=== PATIENT | female | born 1940 | race Caucasian/White ===

== ENCOUNTER → 2017-08-05 09:37 | Outpatient (CLI) | payer MEDICARE, SELFPAY ==
--- NOTE | 2017-08-05 09:39 | BI_ITS ---
MAMMOGRAPHY - BILATERAL SCREENING REASON FOR EXAM: Female, 76 years old. Routine annual screening examination. PERTINENT HISTORY: Aunt with breast cancer. History of prior bilateral stereotactic breast biopsies. TECHNIQUE: Digital bilateral breast panchito (3D mammographic acquisition) in the CC and MLO projections. 2-D mediolateral oblique (MLO) and craniocaudad (CC) views of both breasts were obtained. CAD: Full Field Digital Mammography with Computer Added Detection was performed. COMPARISON: Comparison is made with prior study dated August 04, 2016 and July 17, 2015. FINDINGS: Breast Composition: There are scattered areas of fibroglandular density. There are no dominant masses or suspicious calcifications. Stable appearance of the bilateral tissue markers. No other significant abnormalities are identified. There has been no significant change since the prior study. BI/SCREENING MAMM (CAD), BILAT IMPRESSION: Stable bilateral screening mammogram. Yearly follow-up mammogram recommended. (A) ASSESSMENT CATEGORY: BIRADS Category 2: Benign. A letter regarding these results will be sent to the patient by the facility within 30 days. Approximately 10% of breast cancers are not detected by mammography. A normal mammogram should not delay biopsy of a clinically suspicious abnormality. [id number] Electronically Signed: Jean-Claude Hoffmann MD at 11:26 EDT Tel [phone], Service support ,
== END ==
PROVIDERS: Family Provider Internal Medicine; PCP Internal Medicine; Visit Provider Internal Medicine
DX: Z12.31 Encounter for screening mammogram for malignant neoplasm of breast (principal)
CPT/HCPCS: 77063; 77067

== ENCOUNTER → 2017-12-16 12:41 | Outpatient (CLI) | payer SELFPAY ==
[2017-12-16 13:14] VITALS: BP 154/67; PULSE 46; RESP 14; O2SAT 97; BMI 28.0
--- NOTE | 2017-12-16 13:42 | CT_ITS ---
STUDY: CARDIAC CALCIUM SCORING - CT CHEST REASON FOR EXAM: Female, 77 years old. Family history of heart disease. Hypertension and hypercholesterolemia. RADIATION DOSAGE (If Supplied By Facility): CTDIvol = ( 12.19 ) mGy, DLP = ( 219.42 ) mGycm TECHNIQUE: Axial non-enhanced images were acquired through the heart for the sole purpose of measuring coronary artery calcium. Individualized dose optimization techniques were used for this CT. COMPARISON: Chest, March 30, 2017. FINDINGS: This portion of the report is being generated solely for the evaluation of noncoronary artery structures which have been assessed on plain another report. The visualized lungs are clear. There is no mass or infiltrate Normal heart and pericardium. Normal visualized mediastinum and marine. Normal pulmonary arteries. There is minimal atherosclerotic changes of the thoracic aorta without aneurysm. Minimal degenerative changes of the thoracic spine. Normal visualized upper abdomen. CT/Limited Chest CT w/CCTA IMPRESSION: Atherosclerotic changes of the thoracic aorta without other abnormality. Electronically Signed: Darwin Pacheco DO at 20:18 EDT Tel [phone], Service support ,
--- NOTE | 2017-12-16 18:54 | CA.SCORE ---
Calcium Scoring Date of Study:: 12/16/17 Coronary Calcium Scoring: High-resolution computed tomographic imaging of the chest was performed on 12/16/2017 with particular attention paid to the coronary arteries. Images were analyzed for the presence and extent of coronary artery calcification. The coronary calcification quantification software was utilized. The patient tolerated the procedure well no complications were noted. The results of the coronary calcification analysis are noted as follows. Left main coronary calcium score of 0. Left anterior descending artery coronary calcium score of 0 Left circumflex artery coronary calcification score of 0 Right coronary artery coronary calcium score 0. Total Arvind score of 0. The above is suggestive of very low cardiovascular disease risk with no significant coronary calcification noted.
== END ==
PROVIDERS: Family Provider Internal Medicine; PCP Internal Medicine; Referring Provider Internal Medicine; Visit Provider Internal Medicine
DX: E88.81 Metabolic syndrome and other insulin resistance (principal); E78.00 Pure hypercholesterolemia, unspecified; R79.89 Other specified abnormal findings of blood chemistry; Z82.49 Family history of ischemic heart disease and other diseases of the circulatory system
CPT/HCPCS: 75571; 76380

== ENCOUNTER → 2018-08-09 07:54 | Outpatient (CLI) | payer MEDICARE, SELFPAY ==
[2017-12-16 13:14] VITALS: BMI 28.0
--- NOTE | 2018-08-09 07:58 | BI_ITS ---
MAMMOGRAPHY - BILATERAL SCREENING REASON FOR EXAM: Female, 77 years old. Routine annual screening examination. PERTINENT HISTORY: Aunt with breast cancer. Remote bilateral stereotactic breast biopsies. TECHNIQUE: Digital bilateral breast sherri (3D mammographic acquisition) in the CC and MLO projections. 2-D mediolateral oblique (MLO) and craniocaudad (CC) views of both breasts were obtained. CAD: Full Field Digital Mammography with Computer Added Detection was performed. COMPARISON: Comparison is made with prior study dated August 05, 2017 and August 04, 2016. FINDINGS: Breast Composition: There are scattered areas of fibroglandular density. There are no dominant masses or suspicious calcifications. Stable appearance of the bilateral tissue markers from prior stereotactic biopsies. No other significant abnormalities are identified. There has been no significant change since the prior study. BI/SCREEN MAMM (CAD) W/SHERRI BILAT IMPRESSION: Stable bilateral screening mammogram. Yearly follow-up mammogram recommended. (A) ASSESSMENT CATEGORY: BIRADS Category 2: Benign. A letter regarding these results will be sent to the patient by the facility within 30 days. Approximately 10% of breast cancers are not detected by mammography. A normal mammogram should not delay biopsy of a clinically suspicious abnormality. [id number] Electronically Signed: Jean-Claude Hoffmann, at 13:34 EDT , Service support ,
== END ==
PROVIDERS: Family Provider Internal Medicine; PCP Internal Medicine; Referring Provider Surgery; Visit Provider Surgery
DX: Z12.31 Encounter for screening mammogram for malignant neoplasm of breast (principal)
CPT/HCPCS: 77063; 77067

== ENCOUNTER 2018-10-14 05:20 | Day surgery (SDC) | payer MEDICARE, SELFPAY ==
--- NOTE | 2018-10-11 05:24 | HP_ITS ---
Intake Vital Signs 10/11/18 Body Mass Index (BMI) 28.0 10/11/18 Height 4 ft 11 in 10/11/18 Weight: 145 lb 10/11/18 Body Mass Index (BMI) 29.2 10/11/18 Blood Pressure 157/79 H 10/11/18 Blood Pressure Location Rt brachial 10/11/18 Respiratory Rate 16 10/11/18 Pulse Rate 76 10/11/18 Temperature 97.5 F L 10/11/18 Pulse Ox 98 10/11/18 Oxygen Delivery Method room air Intake Visit Reasons: constipation/discuss colonoscopy Chief Complaint: CA SCORING Allergies Penicillins Allergy (Verified 10/11/18 13:52) Unknown Sulfa (Sulfonamide Antibiotics) Allergy (Verified 10/11/18 13:52) Unknown Medications Alpha Lipoic Acid 03/06/14 [History Confirmed 10/11/18] Ascorbic Acid [Vitamin C] 1,000 mg PO DAILY@0800 03/06/14 [History Confirmed 10/11/18] Aspirin E.C. [Ecotrin] 81 mg PO DAILY@0800 03/06/14 [History Confirmed 10/11/18] Biotin 5 mg PO DAILY 03/06/14 [History Confirmed 10/11/18] Calcium Carb,Gluc/Mag Ox,Gluc [Calcium Magnesium Caplet] 1 ea PO DAILY 03/06/14 [History Confirmed 10/11/18] Cholecalciferol (VIT D3) [Vitamin D3] 1,000 unit PO DAILY 03/06/14 [History Confirmed 10/11/18] Cranberry 25,000 mg PO DAILY 03/06/14 [History Confirmed 10/11/18] Garlic [Odor Free Garlic] 50 mg PO DAILY 03/06/14 [History Confirmed 10/11/18] Ginkgo Biloba 120 mg PO DAILY 03/06/14 [History Confirmed 10/11/18] Lecithin 1,200 mg PO DAILY 03/06/14 [History Confirmed 10/11/18] Lisinopril [Zestril] 5 mg PO DAILY 03/06/14 [History Confirmed 10/11/18] Lutein Extract/Zeaxanthin Ext [Lutein 15 mg Softgel] 1 ea PO DAILY 03/06/14 [History Confirmed 10/11/18] Multivitamins,Therapeutic [Multivitamin] 1 tab PO DAILY 03/06/14 [History Confirmed 10/11/18] Polyethylene Glycol 3350 [Miralax] 17 gm PO DAILY 03/06/14 [History Confirmed 10/11/18] Raspberry Ketone [Raspberry Ketones] 100 mg PO DAILY 03/06/14 [History Confirmed 10/11/18] Simvastatin [Zocor] 10 mg PO QHS 03/06/14 [History Confirmed 10/11/18] Vitamin E 400 units PO DAILY 03/06/14 [History Confirmed 10/11/18] l-Carnitine 500 mg PO DAILY 03/06/14 [History Confirmed 10/11/18] Hydrocodone Bitart/Apap 5-325 [[place] 5MG-325MG] 1 tab PO Q4H PRN PRN #15 tab 03/22/14 [Rx Confirmed 10/11/18] Ondansetron [Zofran Odt] 4 mg PO Q8H PRN PRN #10 tab 03/30/17 [Rx Confirmed 10/11/18] proMETHazine tablet [Phenergan] 25 mg PO Q6H PRN PRN #10 tab 03/30/17 [Rx Confirmed 10/11/18] levothyroxine 50 mcg capsule 50 mcg PO QDAY 08/06/17 [History Confirmed 10/11/18] omega-3 fatty acids 1,000 mg capsule 1,000 mg PO QDAY 08/06/17 [History Confirmed 10/11/18] PFSH Medical History Diverticulosis (Acute) Hypothyroidism (Acute) HTN (hypertension) (Chronic) Surgical History S/P appendectomy (Acute) S/P breast biopsy (Acute) S/P colonoscopy (Acute) S/P hysterectomy (Acute) S/P laparoscopic cholecystectomy (Acute) S/P thyroid biopsy (Acute) S/P tonsillectomy (Acute) Family History Mother No problems noted. Social History (Updated 10/11/18 @ 17:24 by Ariel Zamorano MD) Smoking Status: Former smoker HPI HPI HPI: YFN ARTIS, is a 77 F who presents to the office today for HPI HPI Surgical H&P: Yes HPI: YFN ARTIS, is a 77 F who presents to the office today for surgical consultation regarding a 2 and out month history of change of bowel habits. She has had problems with constipation alternating with looser stools. She has had tissue on the toilet paper now consistently for 1 to 2 weeks. This is painless. Some of her constipation issue has been assisted by utilizing pine nuts. She has just recently initiated use of MiraLAX. Her history is pertinent in that March 22, 2014 I performed a lap scopic lysis of adhesions with a laparoscopic sigmoid colectomy because of a sigmoid diverticular stricture. She had had a preoperative failed colonoscopy by Dr. Jorge Luis Baldwin. A barium enema demonstrated a diverticular stricture. Final pathology was consistent with diverticular disease and one lymph node unremarkable. The margins were not remarkable. The patient otherwise recovered and seemed to have a good progress over the past 4 years. This current problem is new over the past 2 possibly 3 months. She takes a wide variety of vitamins and supplements. She is also recently started on CBD supplement. That apparently has assisted with back pain. She does take an aspirin and fish oil but also takes a product called K2 to inhibit the anticoagulation effect. She denies history of DVT. She denies unexpected weight loss. She notes abdominal discomfort related to cramping and constipation. ROS General General: No weight change, appetite, fatigue, colon cancer, breast cancer or weakness HEENT HEENT: Yes eye surgery; no difficulty swallowing, eye injury, swollen glands or hoarseness Endo Endocrine: Yes thyroid disease; no diabetes mellitus, thyroid cancer, Hair loss, heat intolerance or cold intolerance Skin Skin: No rash or changing moles Breast Breast: No left breast lump, right breast lump, nipple discharge, breast pain, abnormal mammogram, abnormal US or breast enlargement Musc Musculoskeletal: No back problems, arthritis, rheumatoid arthritis, gout or joint pain Cardio Cardiovascular: Yes murmur and high blood pressure; no pacemaker, heart disease, atrial fibrillation, heart attack, heart stent, palpitations, shortness of breat with exertion or chest pain Psych Psychiatric: No depression, anxiety or hearing voices Resp Respiratory: No shortness of breath, No sleep apnea, No cough, No COPD, No asthma, No emphysema, No wheezing Gastro Gastrointestinal: No abdominal pain, No nausea or vomiting, Yes diarrhea, Yes constipation, Yes blood in stool, No acid reflux, Yes hemorrhoids, No ulcers, No gallbladder problem, No black,tarry stools Tan Hematologic: No blood thinners, No blood disorders, No bleeding, No anemia, No blood clots Neuro Neurologic: No system reviewed and no additional complaints, except as docu, No as per HPI, No abnormal walking, No abnormal hearing, No abnormal movements, No abnormal speech, No behavioral changes, No burning sensations, No confusion, No seizure-like activity, No unsteadiness, No dizziness, No localized weakness, No frequent falls, No headache(s), No lack of coordination, No loss of vision, No memory loss, No numbness, No other visual disturbances, No radiating pain, No restless legs, No sensory deficit, No fainting, No tingling, No tremor(s), No weakness, No other Exam Const General: cooperative, healthy appearing, comfortable, no acute distress Nutritional Appearance: average body habitus Orientation: alert, awake, oriented x3 HENMT Head: normal to inspection Chest Breast Palpation: No nipple discharge Resp Effort & Inspection: normal respiratory effort Auscultation: clear to auscultation bilaterally Cardio Rate: regular rate Rhythm: regular rhythm Heart Sounds: murmur GI Palpation: soft, no hepatosplenomegaly Auscultation: normal bowel sounds Neuro Cognition: normal cognition Extrem General: no calf tenderness bilaterally Psych Affect: normal affect Assessment & Plan Problems 1. Change in bowel habit R19.4 Plan Change of bowel habit with constipation and some looser stools. She clearly has bright red blood per rectum on the photographed tissue paper. She has no pain with this. She has previously had diverticulitis and diverticular stricture. I am recommending to her a colonoscopy with possible biopsy or polypectomy as indicated. She is aware of the technique, benefit, risks, alternatives. Very careful inspection of the anal rectal area will be pursued for potential source of bright red bleeding. She has had an opportunity to ask and have questions answered. We will schedule and expedite her care. I appreciate the ongoing opportunity of assisting with her surgical care. CC: Dr. Priya Zamorano M.D., F.A.C.S. Coding Level of Care Code Off vis,est,level 3 Diagnoses Change in bowel habit R19.4 10/11/18 [id number] <Electronically signed by Ariel fuentes MD> Date _ Ariel Zamorano MD I have re-examined the patient. There are no clinical changes since date of exam.
[2018-10-11 13:52] VITALS: BMI 28.0
[2018-10-14] VITALS (7 sets, daily range): BP systolic 98–139; BP diastolic 60–68; PULSE 59–73; RESP 16; TEMP 36.2–36.4; O2SAT 96–99; BMI 27.1
--- NOTE | 2018-10-14 | COLBX_PTH ---
PATIENT: YFN ARTIS LOC: EN U#:[id number] AGE/SX: 77/F ROOM: RE10/14/[address]: Dr. Ariel Zamorano MD : 1940 BED: DIS: 10/14/2018 SPEC #: [id number] RECD: 10/14/18 12:50 STATUS: APARNA RENikko #: [id number] ESTHER: 10/14/18 00:[address]: Ariel Zamorano DEPT: SURGICAL PATHOLOGY RECD BY: Cas Mendez ENTERED: 10/14/18 12:51 SP TYPE: COLON BX OTHR DR: Dr. Priya Ogden MD Tissues: A - Sigmoid colon biopsy B - Rectum, NOS Procedures: Surgery Specimen Level IV HEADER OPERATION: Colonoscopy (MAC) PRE-OP DIAGNOSIS: Change in bowel habit TISSUE SUBMITTED: A - Biopsy sigmoid anastomosis, B - Rectal biopsy MICROSCOPIC DIAGNOSIS A. Sigmoid anastomosis, biopsy: Moderate acute colitis. See microscopic description and comment. B. Rectal biopsy: Moderate acute colitis. See microscopic description and comment. SJ:jacy 10/17/18 COMMENT The finding of acute colitis can be due to self limited colitis, infectious colitis or rarely due to inflammatory bowel disease. Correlation with clinical, endoscopic findings and appropriate follow up are necessary. MICROSCOPIC DESCRIPTION Slides are reviewed. A & B. Both specimens show similar morphologic features. The specimen shows fragments of colonic mucosa with moderate acute and chronic inflammatory cell infiltrates in the lamina propria, cryptitis and crypt abscesses. Significant glandular distortion or granulomas are not seen. GROSS DESCRIPTION A - Received in fixative is one container labeled with the patient's name and designated sigmoid anastomosis. The specimen consists of multiple irregular fragments of light ervin soft tissue that in aggregate measure 0.5 x 0.2 x 0.1 cm. The specimen is totally submitted in one cassette. B - Received in fixative is one container labeled with the patient's name and designated rectal biopsy. The specimen consists of two irregular fragments of light ervin soft tissue that in aggregate measure 0.6 x 0.3 x 0.1 cm. The specimen is totally submitted in one cassette. / AM:jacy 10/14/18 TC:2 CPT: 38941 x2
--- NOTE | 2018-10-14 07:07 | OP.ENDO_ITS ---
10/14/2018 Priya Ogden Re : Colonoscopy procedure for Rachel Lorenzo Melvi This procedure was performed on Sunday, October 14, 2018. My impressions and recommendations are as follows: Impressions : - Non-thrombosed internal hemorrhoids and internal hemorrhoids that prolapse with straining, but spontaneously regress to the resting position (Grade II) found on digital rectal exam. - Erythematous mucosa in the mid rectum. Biopsied. - Patent end-to-end colo-colonic anastomosis, characterized by erythema. Biopsied. Recommendations : - Discharge patient to home. - Resume previous diet. - Continue present medications. - Repeat colonoscopy in 10 years for screening purposes. - Telephone my office for pathology results in 1 week. Will await pathology reports for further recommendations My findings are described in the full procedure note, which is enclosed. If I can be of further assistance, please feel free to contact me at Doctor phone number(s): Work: . Sincerely, Ariel Zamorano MD 10/14/2018 7:06:46 AM This report has been signed electronically.
== END 2018-10-14 07:49 | disposition home or self-care (01) ==
LOC: EN 05:20 → AC 05:22
PROVIDERS: Family Provider Internal Medicine; PCP Internal Medicine; Referring Provider Internal Medicine; Visit Provider Surgery
PROC: 0DJD8ZZ Inspection of Lower Intestinal Tract, Via Natural or Artificial Opening Endoscopic (ICD-10-PCS; CPT 45378; principal; 2018-10-14 06:25)
DX: K57.30 Diverticulosis of large intestine without perforation or abscess without bleeding (principal); K64.1 Second degree hemorrhoids; K59.00 Constipation, unspecified; K62.5 Hemorrhage of anus and rectum; Z98.0 Intestinal bypass and anastomosis status; I10 Essential (primary) hypertension; E03.9 Hypothyroidism, unspecified; Z87.891 Personal history of nicotine dependence; Z79.82 Long term (current) use of aspirin; Z79.899 Other long term (current) drug therapy; Z88.0 Allergy status to penicillin; Z88.2 Allergy status to sulfonamides
CPT/HCPCS: 45380; 88305; J7120

== ENCOUNTER → 2018-11-08 07:57 | Outpatient (CLI) | payer MEDICARE, SELFPAY ==
[2018-10-14 05:42] VITALS: BMI 27.1
--- NOTE | 2018-11-08 08:08 | BD_ITS ---
STUDY: DUAL ENERGY X-RAY ABSORPTIOMETRY / DXA REASON FOR EXAM: Female, 78 years old. The patient is postmenopausal. No loss of height. TECHNIQUE: Bone Mineral Density (BMD) measurements of lumbar spine and bilateral hips were obtained. COMPARISON: Comparison is made with prior examination dated August 05, 2016. FINDINGS: Lumbar Spine (L1-L4): g/cm2 (1.159) / T-score (-0.1) / Z-score (1.7) Findings are suggestive of normal bone density with a low fracture risk. Left Femur Total: g/cm2 (0.922) / T-score (-0.7) / Z-score (1.2) Left Femoral Neck: g/cm2 (0.832) / T-score (-1.5) / Z-score (0.5) Right Femur Total: g/cm2 (0.944) / T-score (-0.5) / Z-score (1.3) Right Femoral Neck: g/cm2 (0.835) / T-score (-1.5) / Z-score (0.5) The T-Scores on the most recent prior examination were: Lumbar Spine (L1-L4): There has been improvement of bone density since the previous examination. Left Femur Total: which represents a worsening of 0.9%. Right Femur Total: which represents an improvement of 1.4%. BD/Dexa Bone Density Study IMPRESSION: The patient is considered osteopenic as outlined below according to World Ellis Organization (WHO) criteria with a low fracture risk. There has been improvement of bone density since the previous examination. Reference Information: The T-score is the number of standard deviations above or below the standard which is normal for young adults at their peak bone mineral density. The World Health Organization (WHO) interprets the T-scores as follows: Above -1 Normal bone density Between -1 and -2.5 Osteopenia Equal to / or below -2.5 Osteoporosis As a practical clinical guideline, osteopenia may be graded as follows: Mild -1 through -1.5 Moderate -1.6 through -2.0 Severe -2.1 through -2.4 The Z-score is the number of standard deviations above or below age-matched controls. A Z-score of less than -1.5 would be considered abnormal. References: 1. NIH Osteoporosis and Related Bone Diseases http://www.osteo.org 2. International Society for Clinical Densitometry http://www.iscd.org 3. National Osteoporosis Foundation http://www.nof.org Electronically Signed: Jean-Claude Hoffmann, at 14:57 EDT , Service support ,
== END ==
PROVIDERS: Family Provider Internal Medicine; PCP Internal Medicine; Referring Provider Internal Medicine; Visit Provider Internal Medicine
DX: Z78.0 Asymptomatic menopausal state (principal); M85.80 Other specified disorders of bone density and structure, unspecified site
CPT/HCPCS: 77080

== ENCOUNTER → 2018-11-10 14:01 | Outpatient (CLI) | payer MEDICARE, SELFPAY ==
[2018-10-14 05:42] VITALS: BMI 27.1
--- NOTE | 2018-11-10 14:04 | VDLE_ITS ---
Reason For Study: Pain Procedure LEFT Exam performed in department. GSV is normal. A preliminary report was called and/or faxed CFV is compressible, spontaneous, phasic, to Melvi. competent, and demonstrates normal augmentation. FV is compressible, spontaneous, phasic, competent and demonstrates normal augmentation. POP V is compressible, spontaneous, phasic, competent and demonstrates normal augmentation. T/P Trunk is compressible. PTV is compressible. LT PerV is compressible. Interpretation Summary Deep veins of the left lower extremity are patent and compressible segmentally. There is no evidence of left lower extremity deep vein thrombosis. Valvular competence appears intact within the proximal deep venous system on the left . The left great saphenous vein appears patent and compressible segmentally. Ordering Physician: Priya Ogden Referring Physician: Priya Ogden Performed By: Ayde Velez RVT
== END ==
PROVIDERS: Family Provider Internal Medicine; PCP Internal Medicine; Referring Provider Internal Medicine; Visit Provider Internal Medicine
DX: M79.662 Pain in left lower leg (principal)
CPT/HCPCS: 93971

== ENCOUNTER → 2018-11-23 10:59 | Outpatient (CLI) | payer MEDICARE, SELFPAY ==
[2018-10-14 05:42] VITALS: BMI 27.1
== END ==
PROVIDERS: Family Provider Internal Medicine; PCP Internal Medicine; Referring Provider Surgery; Visit Provider Surgery
DX: R19.7 Diarrhea, unspecified (principal)
CPT/HCPCS: 83630; 87493

== ENCOUNTER → 2019-08-14 08:30 | Outpatient (CLI) | payer MEDICARE, SELFPAY ==
[2018-10-14 05:42] VITALS: BMI 27.1
--- NOTE | 2019-08-14 08:32 | BI_ITS ---
MAMMOGRAPHY - BILATERAL SCREENING REASON FOR EXAM: Female, 78 years old. Routine annual screening examination. PERTINENT HISTORY: Prior bilateral stereotactic breast biopsies. Aunt with breast cancer. TECHNIQUE: Digital bilateral breast sherri (3D mammographic acquisition) in the CC and MLO projections. 2-D mediolateral oblique (MLO) and craniocaudad (CC) views of both breasts were obtained. CAD: Full Field Digital Mammography with Computer Added Detection was performed. COMPARISON: Comparison is made with prior examination dated August 09, 2018 and August 05, 2017. FINDINGS: Breast Composition: There are scattered areas of fibroglandular density. There are no dominant masses or suspicious calcifications. Tissue clip marker is once again seen in the central portion of the right breast. Stable appearance of the benign-appearing bilateral axillary lymph nodes. No other significant abnormalities are identified. There has been no significant change since the prior study. BI/SCREEN MAMM (CAD) W/SHERRI BILAT IMPRESSION: Stable bilateral screening mammogram. Yearly follow-up mammogram recommended. (A) ASSESSMENT CATEGORY: BIRADS Category 2: Benign. A letter regarding these results will be sent to the patient by the facility within 30 days. Approximately 10% of breast cancers are not detected by mammography. A normal mammogram should not delay biopsy of a clinically suspicious abnormality. [id number] Electronically Signed: Jean-Claude Hoffmann, at 9:57 EDT , Service support ,
== END ==
PROVIDERS: PCP Internal Medicine; Referring Provider Internal Medicine; Visit Provider Surgery
DX: Z12.31 Encounter for screening mammogram for malignant neoplasm of breast (principal); Z80.3 Family history of malignant neoplasm of breast
CPT/HCPCS: 77063; 77067

== ENCOUNTER → 2020-08-14 12:40 | Outpatient (CLI) | payer MEDICARE, SELFPAY ==
[2019-10-10 14:21] VITALS: BMI 27.1
--- NOTE | 2020-08-14 12:43 | BI_ITS ---
MAMMOGRAPHY - BILATERAL SCREENING REASON FOR EXAM: Female, 79 years old. Routine annual screening examination. PERTINENT HISTORY: Aunts with breast cancer. Prior bilateral stereotactic breast biopsy. TECHNIQUE: Digital bilateral breast sherri (3D mammographic acquisition) in the CC and MLO projections. 2-D mediolateral oblique (MLO) and craniocaudad (CC) views of both breasts were obtained. CAD: Full Field Digital Mammography with Computer Added Detection was performed. COMPARISON: Comparison is made with prior study dated 08/14/2019 and 08/09/2018. FINDINGS: Breast Composition: There are scattered areas of fibroglandular density. There are no dominant masses or suspicious calcifications. A tissue clip marker is once again seen in the central portion of the right breast. A tissue clip marker is also seen in the mid medial portion of the left breast. No other significant abnormalities are identified. There has been no significant change since the prior study. BI/SCRN MAMM (CAD)W/SHERRI BILAT IMPRESSION: Stable bilateral screening mammogram. Yearly follow-up mammogram recommended. (A) ASSESSMENT CATEGORY: BIRADS Category 2: Benign. A letter regarding these results will be sent to the patient by the facility within 30 days. Approximately 10% of breast cancers are not detected by mammography. A normal mammogram should not delay biopsy of a clinically suspicious abnormality. [id number] Electronically Signed: Jean-Claude Hoffmann MD at 14:37 EDT , Service support ,
== END ==
PROVIDERS: PCP Internal Medicine; Referring Provider Surgery; Visit Provider Surgery
DX: Z12.31 Encounter for screening mammogram for malignant neoplasm of breast (principal); Z80.3 Family history of malignant neoplasm of breast
CPT/HCPCS: 77063; 77067

== ENCOUNTER → 2020-11-14 14:15 | Outpatient (CLI) | payer MEDICARE, SELFPAY ==
[2019-10-10 14:21] VITALS: BMI 27.1
--- NOTE | 2020-11-14 14:30 | BD_ITS ---
STUDY: DUAL ENERGY X-RAY ABSORPTIOMETRY / DXA REASON FOR EXAM: Female, 80 years old. Z780. Patient is postmenopausal. TECHNIQUE: Bone Mineral Density (BMD) measurements of lumbar spine and bilateral hips were obtained. COMPARISON: Comparison is made with prior study 11/08/2018. FINDINGS: Lumbar Spine (L1-L4): g/cm2 (1.092) / T-score (0.4) / Z-score (3.0) Findings are suggestive of normal bone density with a low fracture risk. Left Femur Total: g/cm2 (0.860) / T-score (-0.7) / Z-score (1.3) Left Femoral Neck: g/cm2 (0.625) / T-score (-2.0) / Z-score (0.2) Right Femur Total: g/cm2 (0.846) / T-score (-0.8) / Z-score (1.2) Right Femoral Neck: g/cm2 (0.664) / T-score (-1.7) / Z-score (0.6) The T-Scores on the most recent prior examination were: Lumbar Spine (L1-L4): There has been worsening of bone density since the previous examination. Left Femur Total: which represents an improvement of 0.3%. Right Femur Total: which represents a worsening of 3.8%. BD/Dexa Bone Density Study IMPRESSION: The patient is considered osteopenic as outlined below according to World Ellis Organization (WHO) criteria with a low fracture risk. There has been worsening of bone density since the previous examination. Reference Information: The T-score is the number of standard deviations above or below the standard which is normal for young adults at their peak bone mineral density. The World Health Organization (WHO) interprets the T-scores as follows: Above -1 Normal bone density Between -1 and -2.5 Osteopenia Equal to / or below -2.5 Osteoporosis As a practical clinical guideline, osteopenia may be graded as follows: Mild -1 through -1.5 Moderate -1.6 through -2.0 Severe -2.1 through -2.4 The Z-score is the number of standard deviations above or below age-matched controls. A Z-score of less than -1.5 would be considered abnormal. References: 1. NIH Osteoporosis and Related Bone Diseases www osteo.org 2. International Society for Clinical Densitometry www iscd.org 3. National Osteoporosis Foundation www nof.org Electronically Signed: Jean-Claude Hoffmann MD at 9:36 EDT , Service support ,
== END ==
PROVIDERS: PCP Internal Medicine; Referring Provider Internal Medicine; Visit Provider Internal Medicine
DX: Z78.0 Asymptomatic menopausal state (principal)
CPT/HCPCS: 77080

== ENCOUNTER → 2020-11-27 12:31 | Outpatient (CLI) | payer SELFPAY ==
--- NOTE | 2020-11-27 12:37 | CT_ITS ---
STUDY: CARDIAC CALCIUM SCORING - CT CHEST REASON FOR EXAM: Female, 80 years old. CTA CORONARY ABNL CARDIOVASCULAR RESULTS TECHNIQUE: Axial non-enhanced images were acquired through the heart for the sole purpose of measuring coronary artery calcium. Individualized dose optimization techniques were used for this CT. COMPARISON: 12/16/2017 FINDINGS: Visualized surrounding anatomy: Aortic valvular calcifications. Left Main Coronary Artery: 0 Left Anterior Descending Artery: 0 Left Circumflex Artery: 0 Right Coronary Artery: 0 Total Calcium Score: 0 CT/Limited Chest CT w/CCTA IMPRESSION: A Calcium Score of 0 places the patient in the approximate 0 percentile, based on the CARR data calculator. Please go to: [email or web address]-[email or web address]/Calcium/input.aspx , for a description of the calculator. Electronically Signed: Damian Milan MD at 8:45 EDT , Service support ,
[2020-11-27 12:45] VITALS: BP 163/90; PULSE 59; RESP 18; TEMP 36.6; O2SAT 100; BMI 26.2
--- NOTE | 2020-11-27 17:59 | CA.SCORE ---
Calcium Scoring Date of Study:: 11/27/20 Coronary Calcium Scoring: High-resolution Computed Tomographic imaging of the chest was performed on 11/27/2020 with particular attention paid to the coronary arteries. Images from the examination were analyzed for the presence and extent of coronary artery calcification , using coronary calcium quantification software. The patient tolerated the procedure well and there were no complications. The results of the coronary calcification analysis are provided below. Findings Coronary Artery Left Main (LM): 0 Left Anterior Descending (LAD): 0 Left Circumflex (LCX): 0 Right Coronary Artery (RCA): 0 Total Agatston Score: 0 Percentile Ranking: According to prepublished reference tables 0% of people of the same gender and/or similar age had the same and/or lower scores Calcium Scoring Interpretation: 0 No identifiable atherosclerotic plaque. Very low cardiovascular disease risk. <5% chance of presence coronary artery disease A Negative Examination 1-10 Minimal Plaque burden. Significant coronary artery disease very unlikely. 11-100 Mild plaque burden. Likely mild or minimal coronary atherosclerosis. 101-400 Moderate plaque burden Moderate non-obstructive coronary artery disease highly likely. Over 400 Extensive plaque burden. High likelihood of at least one significant coronary stenosis (>50% diameter) Calcium Score: 0 Negative Examination Conclusion: Continue cardiovascular evaluation and care as deemed appropriate. This note was generated using a voice recognition system and there may be incorrect words, spelling or punctuation that were not noted when reviewing the office note prior to saving.
== END ==
PROVIDERS: PCP Internal Medicine; Referring Provider Internal Medicine; Visit Provider Internal Medicine
DX: E78.49 Other hyperlipidemia (principal)
CPT/HCPCS: 75571; 76380

== ENCOUNTER → 2021-08-15 | Outpatient (CLI) | payer MEDICARE, SELFPAY ==
--- NOTE | 2021-08-15 08:50 | BI_ITS ---
MAMMOGRAPHY - BILATERAL SCREENING REASON FOR EXAM: Female, 80 years old. Routine annual screening examination. PERTINENT HISTORY: Aunt with breast cancer. Prior left and right stereotactic breast biopsies. TECHNIQUE: Digital bilateral breast sehrri (3D mammographic acquisition) in the CC and MLO projections. 2-D mediolateral oblique (MLO) and craniocaudad (CC) views of both breasts were obtained. CAD: Full Field Digital Mammography with Computer Added Detection was performed. COMPARISON: Comparison is made with prior study dated 08/14/2020 and 08/14/2019. FINDINGS: Breast Composition: There are scattered areas of fibroglandular density. There are no dominant masses or suspicious calcifications. 2 tissue clip marker are once again seen in the central portion of the right breast as well as in the mid medial portion of the left breast. Stable appearance of the right axillary lymph nodes. No other significant abnormalities are identified. There has been no significant change since the prior study. BI/SCRN MAMM (CAD)W/SHERRI BILAT IMPRESSION: Stable bilateral screening mammogram. Yearly follow-up mammogram recommended. (A) ASSESSMENT CATEGORY: BIRADS Category 2: Benign. A letter regarding these results will be sent to the patient by the facility within 30 days. Approximately 10% of breast cancers are not detected by mammography. A normal mammogram should not delay biopsy of a clinically suspicious abnormality. [id number] Electronically Signed: Jean-Claude Hoffmann MD at 9:57 EDT ,
== END | disposition home or self-care (01) ==
LOC: OPBI 08:49
PROVIDERS: PCP Internal Medicine; Referring Provider Surgery; Visit Provider Surgery
DX: Z12.31 Encounter for screening mammogram for malignant neoplasm of breast (principal)
CPT/HCPCS: 77063; 77067

== ENCOUNTER → 2021-12-10 | Outpatient (CLI) | payer MEDICARE, SELFPAY ==
--- NOTE | 2021-12-10 11:16 | RAD_ITS ---
STUDY: X-RAY - PELVIS AND RIGHT HIP REASON FOR EXAM: Female, 81 years old. Pain. TECHNIQUE: 3 views of the pelvis and hip. COMPARISON: None. FINDINGS: There is a non-specific bowel gas pattern. Levels. Osteopenia. Mild arthrosis of both sacroiliac joints. Normal bilateral superior and inferior pubic rami. Mild arthrosis of the symphysis pubis. Normal bilateral ischial tuberosities. Mild arthrosis of both hips. RAD/HIP, UNI W/ Pelvis 2-3 Views IMPRESSION: Osteopenia with mild arthrosis both sacroiliac joints, symphysis pubis and both hips. No acute abnormality, evidence of erosive changes or fusion. Electronically Signed: Matt Cates, at 13:34 EDT ,
== END | disposition home or self-care (01) ==
LOC: MTRAD 11:14
PROVIDERS: PCP Internal Medicine; Referring Provider Internal Medicine; Visit Provider Internal Medicine
DX: M25.551 Pain in right hip (principal); M25.552 Pain in left hip
CPT/HCPCS: 73502

== ENCOUNTER → 2022-08-17 | Outpatient (CLI) | payer MEDICARE, SELFPAY ==
--- NOTE | 2022-08-17 08:44 | BI_ITS ---
MAMMOGRAPHY - BILATERAL SCREENING REASON FOR EXAM: Female, 81 years old. Routine annual screening examination. PERTINENT HISTORY: Aunt with breast cancer. History of prior bilateral stereotactic breast biopsies. TECHNIQUE: Digital bilateral breast sherri (3D mammographic acquisition) in the CC and MLO projections. 2-D mediolateral oblique (MLO) and craniocaudad (CC) views of both breasts were obtained. CAD: Full Field Digital Mammography with Computer Added Detection was performed. COMPARISON: Comparison is made with prior study dated August 15, 2021 and August 14, 2020. FINDINGS: Breast Composition: There are scattered areas of fibroglandular density. There are no dominant masses or suspicious calcifications. Once again, 2 tissue markers are seen in the central portion of the right breast as well as in the mid medial portion of the left breast. No other significant abnormalities are identified. There has been no significant change since the prior study. BI/SCRN MAMM (CAD)W/SHERRI BILAT IMPRESSION: Stable bilateral screening mammogram. Yearly follow-up mammogram recommended. (A) ASSESSMENT CATEGORY: BIRADS Category 2: Benign. A letter regarding these results will be sent to the patient by the facility within 30 days. Approximately 10% of breast cancers are not detected by mammography. A normal mammogram should not delay biopsy of a clinically suspicious abnormality. [id number] Electronically Signed: Jean-Claude Hoffmann MD at 10:07 EDT ,
== END | disposition home or self-care (01) ==
LOC: OPBI 08:41
PROVIDERS: PCP Internal Medicine; Referring Provider Surgery; Visit Provider Surgery
DX: Z12.31 Encounter for screening mammogram for malignant neoplasm of breast (principal)
CPT/HCPCS: 77063; 77067

== ENCOUNTER → 2022-12-03 | Outpatient (CLI) | payer MEDICARE, SELFPAY ==
--- NOTE | 2022-12-03 09:06 | BD_ITS ---
STUDY: DUAL ENERGY X-RAY ABSORPTIOMETRY / DXA REASON FOR EXAM: Female, 82 years old. Z780 TECHNIQUE: Bone Mineral Density (BMD) measurements of lumbar spine and bilateral hips were obtained. COMPARISON: Comparison is made with prior study to November 14, 2020. FINDINGS: Lumbar Spine (L1-L4): g/cm2 (0.985) / T-score (-0.3) / Z-score (2.4) Findings are suggestive of normal bone density with a low fracture risk. Left Femur Total: g/cm2 (0.841) / T-score (-0.8) / Z-score (1.3) Left Femoral Neck: g/cm2 (0.651) / T-score (-1.8) / Z-score (0.6) Right Femur Total: g/cm2 (0.850) / T-score (-0.8) / Z-score (1.4) Right Femoral Neck: g/cm2 (0.644) / T-score (-1.8) / Z-score (0.5) The T-Scores on the most recent prior examination were: Lumbar Spine (L1-L4): There has been worsening of bone density since the previous examination. Left Femur Total: which represents a worsening of 2.3%. Right Femur Total: which represents an improvement of 0.4%. BD/Dexa Bone Density Study IMPRESSION: The patient is considered osteopenic as outlined below according to World Ellis Organization (WHO) criteria with a moderate fracture risk. There has been worsening of bone density since the previous examination. Reference Information: The T-score is the number of standard deviations above or below the standard which is normal for young adults at their peak bone mineral density. The World Health Organization (WHO) interprets the T-scores as follows: Above -1 Normal bone density Between -1 and -2.5 Osteopenia Equal to / or below -2.5 Osteoporosis As a practical clinical guideline, osteopenia may be graded as follows: Mild -1 through -1.5 Moderate -1.6 through -2.0 Severe -2.1 through -2.4 The Z-score is the number of standard deviations above or below age-matched controls. A Z-score of less than -1.5 would be considered abnormal. References: 1. NIH Osteoporosis and Related Bone Diseases www osteo.org 2. International Society for Clinical Densitometry www iscd.org 3. National Osteoporosis Foundation www nof.org Electronically Signed: Jean-Claude Hoffmann MD at 14:23 EDT ,
== END | disposition home or self-care (01) ==
LOC: OPBD 09:00
PROVIDERS: PCP Internal Medicine; Referring Provider Internal Medicine; Visit Provider Internal Medicine
DX: Z78.0 Asymptomatic menopausal state (principal)
CPT/HCPCS: 77080

== ENCOUNTER → 2022-12-23 | Outpatient (CLI) | payer MEDICARE, SELFPAY | END | disposition home or self-care (01) | PROVIDERS: PCP Internal Medicine; Referring Provider Internal Medicine; Visit Provider Internal Medicine | DX: R00.2 Palpitations (principal) | CPT/HCPCS: 93225; 93226 ==

== ENCOUNTER → 2023-01-14 | Outpatient (CLI) | payer MEDICARE, SELFPAY ==
[2023-01-14 12:10] LABS: AST(SGOT) 33 U/L (15-37); Alanine Aminotransfer ALT/SGPT 49 U/L (13-56); Albumin, Serum 4.1 g/dL (3.2-5.0); Alkaline Phosphatase 109 U/L (45-117); Anion Gap 5 (5-15); BUN 17 mg/dL (7-18); BUN/Creat Ratio 22.6 RATIO (10-20); Calcium,Total 9.8 mg/dL (8.5-10.1); Chloride 106 mmol/L (98-107); Creatinine, Serum 0.75 mg/dL (0.55-1.02); EST Glomerular Filtration Rate 78 mL/min (>60); Est Glom Filt Rate - Afr Amer 95 mL/min (>60); Globulin 4.2 g/dL (2.2-4.2); Glucose 97 mg/dL (74-106); Magnesium 2.2 mg/dL (1.6-2.6); Potassium 3.6 mmol/L (3.5-5.1); Protein, Total 8.3 g/dL (6.4-8.2); Sodium Level 138 mmol/L (136-145); Thyroid Stim Hormone (TSH) 3.81 uIU/mL (0.358-3.74)
== END | disposition home or self-care (01) ==
LOC: LAB 10:56
PROVIDERS: PCP Internal Medicine; Referring Provider Internal Medicine Cardiovascular Disease; Visit Provider Internal Medicine Cardiovascular Disease
DX: I49.3 Ventricular premature depolarization (principal); E78.49 Other hyperlipidemia; I34.1 Nonrheumatic mitral (valve) prolapse; R07.89 Other chest pain; R00.2 Palpitations
CPT/HCPCS: 36415; 80053; 83735; 84443

== ENCOUNTER → 2023-01-15 | Outpatient (CLI) | payer MEDICARE, SELFPAY ==
--- NOTE | 2023-01-15 06:56 | ECHOD_ITS ---
Reason For Study: Chest Pain Procedure This was a 2D Doppler, Color Flow transthoracic echocardiogram. Exam performed in department. Left Ventricle Normal size and thickness. The left ventricular ejection fraction is 70 %. Stage 1 diastolic dysfunction. Right Ventricle Normal right ventricle. Atria There is mild biatrial dilatation. Bubble contrast study is negative for PFO/ASD. Mitral Valve Moderate (2+) mitral valve insufficiency. Tricuspid Valve Normal pulmonary artery pressure. Mild to moderate (1-2+) tricuspid valve insufficiency. Aortic Valve Trisinus/trileaflet aortic valve. Mild-Moderate (1-2+) aortic valve insufficiency. Pulmonic Valve The pulmonic valve is not well visualized. Great Vessels Normal sized aortic root. Pericardium/Pleural No pericardial effusion. Medication 22 gauge I.V. with prn adaptor inserted into right arm. Performed a rapid injection of agitated mix of 9 cc saline and 1cc air to assess for atrial septal defect. MMode/2D Measurements & Calculations LVIDd: 4.0 cm IVSd: 0.83 cm Ao root diam: 3.0 cm LVIDs: 2.4 cm LVPWd: 0.91 cm LA dimension: 3.0 cm RVDd: 3.2 cm FS: 38.4 % LAV(MOD-bp): 34.2 ml LVAd ap4: 20.4 cm2 SV(MOD-sp4): 33.0 ml LAV(MOD-bp) Indexed: 22.1 ml/m2 LVLd ap4: 6.4 cm LAV(MOD-sp2): 35.8 ml EDV(MOD-sp4): 53.0 ml LAV(MOD-sp4): 28.1 ml EDV(sp4-el): 54.9 ml LVAs ap4: 11.3 cm2 LVLs ap4: 5.6 cm ESV(MOD-sp4): 20.0 ml ESV(sp4-el): 19.6 ml EF(MOD-sp4): 62.3 % EF(sp4-el): 64.3 % SV(sp4-el): 35.3 ml LA A4 area: 12.3 cm2 RA A4 area: 13.9 cm2 TAPSE: 1.9 cm Time Measurements MV dec time: 0.29 sec Doppler Measurements & Calculations MV E max pedro: 41.5 cm/sec Lat Peak E' Pedro: 5.0 cm/sec Med Peak E' Pedro: 10.2 cm/sec MV A max pedro: 85.6 cm/sec E/E' lat: 8.2 E/E' med: 4.1 MV E/A: 0.48 MV V2 max: 115.3 cm/sec MV P1/2t max pedro: 78.6 cm/sec Ao V2 max: 111.5 cm/sec MV max P.3 mmHg MV P1/2t: 112.6 msec Ao max P.0 mmHg MV V2 mean: 53.1 cm/sec Ao V2 mean: 77.4 cm/sec MV mean P.4 mmHg MV dec slope: 204.3 cm/sec2 Ao mean P.7 mmHg MV V2 VTI: 25.6 cm MVA(P1/2t): 2.0 cm2 Ao V2 VTI: 26.7 cm AV (velocity ratio): 0.74 AI max pedro: 435.6 cm/sec LV V1 max: 81.3 cm/sec MR max pedro: 548.2 cm/sec AI max P.0 mmHg LV V1 max P.6 mmHg MR max P.2 mmHg LV V1 mean P.6 mmHg MR mean pedro: 473.9 cm/sec AI dec slope: 234.0 cm/sec2 LV V1 mean: 59.1 cm/sec MR mean P.1 mmHg AI P1/2t: 545.1 msec LV V1 VTI: 19.9 cm MR VTI: 212.8 cm PA V2 max: 65.2 cm/sec PI end-d pedro: 105.0 cm/sec TR max pedro: 248.2 cm/sec TR max P.6 mmHg ECHO/Echo Complete Interpretation Summary The left ventricular ejection fraction is 70 %. Stage 1 diastolic dysfunction. Moderate (2+) mitral valve insufficiency. Mild to moderate (1-2+) tricuspid valve insufficiency. Mild-Moderate (1-2+) aortic valve insufficiency. Ordering Physician: Priya Ogden Referring Physician: Priya Ogden Performed By: Vinayak Maldonado [facility]
--- NOTE | 2023-01-24 11:39 | STRESSREP_ITS ---
Stress Test Report Date: 01/15/2023 Procedure: Exercise tolerance test/imaging study Indications: Chest pain Consent: Per the patient Procedure: The patient exercised on a Champ protocol for 6 minutes achieving a peak heart rate of 131 bpm (94% predicted maximal heart rate) with a peak blood pressure 180/82 mmHg and a peak MET capacity of 7 METs. The baseline ECG demonstrated normal sinus rhythm, frequent PVCs. The peak exercise ECG demonstrated no significant ischemic changes. EKG during recovery revealed no significant ischemic changes [There were no cardiac dysrhythmias pretest, during exercise, or recovery]. The functional capacity was considered excellent for age. There was [no complaint of chest discomfort during exercise or recovery]. The examination was discontinued secondary to achieving target heart rate. Impression: 1. Technically adequate (percent predicted maximal heart rate greater than 85%) exercise tolerance test 2. Stress test is negative for exercise-induced EKG changes of ischemia 3. The test test is negative for exercise-induced chest pain 4. Functional capacity is excellent for age 5. Nuclear images pending Myocardial perfusion imaging study: Technique: The patient was injected with 12 mCi of technetium 99m Cardiolite and subsequently rest SPECT Cardiolite nuclear imaging was obtained in the horizontal long, vertical long, and short axis views. The patient exercised on a Champ protocol. Please see above for details. The patient was injected with 35 mCi of technetium 99m Cardiolite and subsequently stress SPECT Cardiolite nuclear imaging was obtained in the horizontal long, vertical long, and short axis views. A gated Cardiolite study at peak stress was obtained. Interpretation: Rest and stress SPECT Cardiolite nuclear imaging status post realignment, normalization, and attenuation correction, demonstrates normal myocardial radioisotope uptake. Gated images could not be obtained due to frequent PVCs. Ejection fraction was not calculated as result. Impression: 1. There is no evidence of significant ischemia or infarction. This note was generated with [employer] software. It may contain incorrect words, spelling, and punctuation that were not noted in checking the note before signing.
== END | disposition home or self-care (01) ==
LOC: CVS 06:55
PROVIDERS: PCP Internal Medicine; Referring Provider Internal Medicine; Visit Provider Internal Medicine
DX: R07.9 Chest pain, unspecified (principal); I49.3 Ventricular premature depolarization
CPT/HCPCS: 78452; 93017; 93306; A9500; A4216; J2785

== ENCOUNTER → 2023-04-08 | Outpatient (CLI) | payer MEDICARE, SELFPAY ==
[2023-04-08 11:48] LABS: Anion Gap 4 (5-15); BUN 16 mg/dL (7-18); BUN/Creat Ratio 23.3 RATIO (10-20); Calcium,Total 9.8 mg/dL (8.5-10.1); Chloride 105 mmol/L (98-107); Cholesterol 210 mg/dL (200); Creatinine, Serum 0.69 mg/dL (0.55-1.02); EST Glomerular Filtration Rate 87 mL/min (>60); Est Glom Filt Rate - Afr Amer 106 mL/min (>60); Glucose 100 mg/dL (74-106); High Density Lipoprotein 65 mg/dL; Potassium 3.9 mmol/L (3.5-5.1); Sodium Level 139 mmol/L (136-145); Triglycerides 170 mg/dL; Very Low Density Lipoprotein 34 mg/dL (5-40)
== END | disposition home or self-care (01) ==
PROVIDERS: PCP Internal Medicine; Referring Provider Internal Medicine Cardiovascular Disease; Visit Provider Internal Medicine Cardiovascular Disease
DX: E03.9 Hypothyroidism, unspecified (principal); E78.49 Other hyperlipidemia; I49.3 Ventricular premature depolarization; R00.2 Palpitations; R07.89 Other chest pain
CPT/HCPCS: 36415; 80048; 80061

== ENCOUNTER → 2023-08-19 | Outpatient (CLI) | payer MEDICARE, SELFPAY ==
--- NOTE | 2023-08-19 09:12 | BI_ITS ---
MAMMOGRAPHY - BILATERAL SCREENING REASON FOR EXAM: Female, 82 years old. Routine annual screening examination. PERTINENT HISTORY: Aunt with breast cancer. Prior bilateral stereotactic breast biopsies. TECHNIQUE: Digital bilateral breast sherri (3D mammographic acquisition) in the CC and MLO projections. 2-D mediolateral oblique (MLO) and craniocaudad (CC) views of both breasts were obtained. CAD: Full Field Digital Mammography with Computer Added Detection was performed. COMPARISON: Comparison is made with prior study dated August 17, 2022 and August 15, 2021. FINDINGS: Breast Composition: There are scattered areas of fibroglandular density. There are no dominant masses or suspicious calcifications. Once again, 2 tissue markers are seen in the central portion of her breast as well as in the medial midportion of the left breast. Stable benign-appearing bilateral axillary lymph nodes. No other significant abnormalities are identified. There has been no significant change since the prior study. BI/SCRN MAMM (CAD)W/SHERRI BILAT IMPRESSION: Stable bilateral screening mammogram. Yearly follow-up mammogram recommended. (A) ASSESSMENT CATEGORY: BIRADS Category 2: Benign. A letter regarding these results will be sent to the patient by the facility within 30 days. Approximately 10% of breast cancers are not detected by mammography. A normal mammogram should not delay biopsy of a clinically suspicious abnormality. [id number] Electronically Signed: Jean-Claude Hoffmann MD at 10:12 EDT ,
== END | disposition home or self-care (01) ==
LOC: OPBI 09:12
PROVIDERS: PCP Internal Medicine; Referring Provider Surgery; Visit Provider Surgery
DX: Z12.31 Encounter for screening mammogram for malignant neoplasm of breast (principal)
CPT/HCPCS: 77063; 77067

== ENCOUNTER → 2023-11-23 | Outpatient (CLI) | payer MEDICARE, SELFPAY ==
--- NOTE | 2023-11-23 08:51 | US_ITS ---
STUDY: ABDOMINAL ULTRASOUND - RIGHT UPPER QUADRANT; ELASTOGRAPHY REASON FOR VISIT: Female, 83 years old. Fatty infiltration of the liver. TECHNIQUE: Ultrasound evaluation of the right upper quadrant was performed with real-time and static herrera-scale imaging. Point quantification shear wave elastography was performed (Vopium). TECHNICAL QUALITY: Adequate. COMPARISON: None. FINDINGS: Liver: The liver measures 14.1 cm. There is a mild heterogeneous echogenicity of the liver. The bile ducts are within normal limits. There is hepatic color flow. The direction of portal flow is hepatopetal. There is no demonstrated mass lesion. Median liver stiffness measured 9.1 kPa. Gallbladder: The patient is status post cholecystectomy. Common Bile Duct (C.B.D.): The common bile duct measures 6.2 mm. Pancreas: There is normal echogenicity of the visualized pancreas. There is no demonstrated pancreatic mass or cyst. Right Kidney: Normal size of the right kidney. The right kidney measures 10.2 cm x 4.7 cm x 4 cm. Normal renal cortex. The right cortex measures 1.0 cm. There is no demonstrated renal mass or cyst. There is no right hydronephrosis. US/ABD Limited w/ Elastography IMPRESSION: 1. Liver stiffness measures 9.1 kPa compatible with F2-F3 (Mild to moderate liver fibrosis) Metavir score. Electronically Signed: Jean-Claude Hoffmann MD at 14:03 EDT ,
[2023-11-23 10:04] LABS: Absolute Lymphocyte Count 2.27 X10^3/uL (0.83-4.51); Absolute Neutrophil Count 4.8 X10^3/uL (2.0-7.7); Basophil# 0.05 X10^3/uL; Basophil% 0.7 % (0-1); Hematocrit 42.3 % (37-47); Lymphocyte # 2.27 X10^3/ul (0.83-4.51); Lymphocyte % 30.1 % (19-41); Mean Corp Hgb Conc 33.1 g/dL (32-36); Mean Corpuscular Volume 90.6 fL (81-99); Mean Platelet Vol. 9.2 fl (6.2-12.0); Monocyte# 0.44 X10^3/uL; Monocyte% 5.8 % (0-10); NRBC Flagged by Analyzer 0 % (0-5); Neutrophil # 4.75 X10^3/uL (2.7-7.7); Platelet Count 246 K/mm3 (150-450); RBC Distribution Width CV 12.1 % (11.6-14.6); RBC Distribution Width SD 39.4 fl (35.1-43.9); Red Blood Count 4.67 M/mm3 (4.2-5.4); White Blood Count 7.5 K/mm3 (4.4-11.0)
[2023-11-23 10:12] LABS: Erythrocyte Sedimentation Rate 10 mm/hr (0-30)
== END | disposition home or self-care (01) ==
PROVIDERS: PCP Internal Medicine; Referring Provider Internal Medicine; Visit Provider Internal Medicine
DX: K51.90 Ulcerative colitis, unspecified, without complications (principal)
CPT/HCPCS: 36415; 76705; 76981; 85025; 85652

== ENCOUNTER → 2024-06-12 | Outpatient (CLI) | payer MEDICARE, SELFPAY ==
--- NOTE | 2024-06-12 10:20 | RAD_ITS ---
PROCEDURE: CHEST PA AND LATERAL 06/12/2024 REASON FOR EXAM: CXR PA T LAT ([id number]) : COUGH TECHNIQUE: Frontal and lateral views of the chest. FINDINGS: The lungs appear clear. Pulmonary vascularity appears within limits. No pleural effusion. The cardiac and mediastinal contours appear within limits. Status post cholecystectomy. The visualized osseous structures appear within limits. RAD/Chest PA and Lateral IMPRESSION: No evidence of acute disease. Reading Location: [id number]
== END | disposition home or self-care (01) ==
LOC: RAD 10:04
PROVIDERS: PCP Internal Medicine; Referring Provider Nurse Practitioner Family; Visit Provider Nurse Practitioner Family
DX: R05.9 Cough, unspecified (principal)
CPT/HCPCS: 71046

== ENCOUNTER → 2024-07-05 | Outpatient (CLI) | payer MEDICARE, SELFPAY ==
--- NOTE | 2024-07-05 10:01 | ECHOD_ITS ---
Reason For Study Reason For Study: CHEST PAIN Procedure This was a 2D Doppler, Color Flow transthoracic echocardiogram. Exam performed in department. Left Ventricle Normal size and thickness. The left ventricular ejection fraction is 65 %. Normal diastology for age. Right Ventricle Normal right ventricle. Atria The left and right atria are normal. Mitral Valve Moderate (2+) mitral valve insufficiency. Tricuspid Valve Mild to moderate (1-2+) tricuspid valve insufficiency. Normal pulmonary artery pressure. Aortic Valve Trisinus/trileaflet aortic valve. Mild (1+) aortic valve insufficiency. Pulmonic Valve Trivial pulmonic valve insufficiency. Great Vessels Normal sized aortic root. Pericardium/Pleural No pericardial effusion. MMode/2D Measurements & Calculations LVIDd: 4.3 cm IVSd: 0.73 cm Ao root diam: 3.1 cm LVIDs: 2.8 cm LVPWd: 0.80 cm RVDd: 2.6 cm FS: 34.9 % LAV(MOD-bp): 27.5 ml LVAd ap4: 22.1 cm2 SV(MOD-sp4): 36.4 ml LAV(MOD-bp) Indexed: 17.6 ml/m2 LVLd ap4: 6.8 cm SI(MOD-sp4): 23.3 ml/m2 LAV(MOD-sp2): 26.4 ml EDV(MOD-sp4): 60.4 ml LAV(MOD-sp4): 26.1 ml EDV(sp4-el): 61.0 ml LVAs ap4: 12.4 cm2 LVLs ap4: 5.6 cm ESV(MOD-sp4): 24.1 ml ESV(sp4-el): 23.6 ml EF(MOD-sp4): 60.2 % EF(sp4-el): 61.2 % SV(sp4-el): 37.4 ml LA A4 area: 12.2 cm2 LA dimension(2D): 3.4 cm RA A4 area: 11.3 cm2 TAPSE: 1.9 cm Time Measurements MV dec time: 0.23 sec Doppler Measurements & Calculations MV E max pedro: 72.8 cm/sec Lat Peak E' Pedro: 7.5 cm/sec Med Peak E' Pedro: 9.0 cm/sec MV A max pedro: 97.9 cm/sec E/E' lat: 9.7 E/E' med: 8.1 MV E/A: 0.74 Ao V2 max: 129.4 cm/sec AI max pedro: 485.6 cm/sec LV V1 max: 101.0 cm/sec Ao max P.7 mmHg AI max P.4 mmHg LV V1 max P.1 mmHg AI dec slope: 249.7 cm/sec2 AI P1/2t: 569.5 msec PA V2 max: 74.9 cm/sec TR max pedro: 252.0 cm/sec TR max P.4 mmHg ECHO/Echo Complete Interpretation Summary The left ventricular ejection fraction is 65 %. Moderate (2+) mitral valve insufficiency. Mild to moderate (1-2+) tricuspid valve insufficiency. Mild (1+) aortic valve insufficiency. Ordering Physician: Neris Guerrero Referring Physician: VIC SOLO Performed By: Maris Solano RDCS
== END | disposition home or self-care (01) ==
LOC: CVS 10:00
PROVIDERS: PCP Internal Medicine; Referring Provider Internal Medicine Cardiovascular Disease; Visit Provider Internal Medicine Cardiovascular Disease
DX: I34.1 Nonrheumatic mitral (valve) prolapse (principal); I34.0 Nonrheumatic mitral (valve) insufficiency; I35.1 Nonrheumatic aortic (valve) insufficiency; R07.9 Chest pain, unspecified
CPT/HCPCS: 93306

== ENCOUNTER → 2024-08-21 | Outpatient (CLI) | payer MEDICARE, SELFPAY ==
--- NOTE | 2024-08-21 10:45 | BI_ITS ---
EXAM: SCRN MAMM (CAD)W/SHERRI BILAT DATE: 08/21/2024 CLINICAL HISTORY: F, Age 83 y/o , SCREENING BREAST CANCER Aunts with breast cancer. Prior bilateral stereotactic breast biopsies. BREAST CANCER RISK ASSESSMENT: Not assessed. TECHNIQUE: Bilateral screening digital breast tomosynthesis with 2D and 3D images. Computer aided detection. COMPARISON: Prior exam(s) dated August 19, 2023.. FINDINGS: TISSUE DENSITY: The breast tissue is composed of scattered area of fibroglandular density. Bilateral Breast Mammographic Findings: No significant masses, calcifications or other abnormalities are identified. Once again, there are 2 tissue clip marker seen in the central portion of the right breast as well as a tissue clip marker seen in the medial slightly inferior aspect of the left breast. No suspicious masses, areas of developing architectural distortion, or suspicious calcifications. There has been no significant interval change. BI/SCRN MAMM (CAD)W/SHERRI BILAT IMPRESSION: OVERALL FINAL ASSESSMENT: BIRADS 2 BENIGN FINDING RECOMMENDATION: Routine annual follow-up in 1 Year A letter with findings and recommendations will be mailed to the patient. Reading Location: [place] [id number]
== END | disposition home or self-care (01) ==
LOC: OPBI 10:39
PROVIDERS: PCP Internal Medicine; Referring Provider Surgery; Visit Provider Surgery
DX: Z12.31 Encounter for screening mammogram for malignant neoplasm of breast (principal)
CPT/HCPCS: 77063; 77067

== ENCOUNTER → 2024-11-14 | Outpatient (CLI) | payer MEDICARE, SELFPAY ==
[2024-11-14 12:09] LABS: AST(SGOT) 30 U/L (<=31); Alanine Aminotransfer ALT/SGPT 21 U/L (<=34); Albumin, Serum 4.6 g/dL (3.4-4.8); Alkaline Phosphatase 76 U/L (35-104); Anion Gap 10 (5-15); BUN 14 mg/dL (4-19); BUN/Creat Ratio 19.5 RATIO (10-20); Calcium,Total 10.0 mg/dL (7.6-11.0); Carbon Dioxide 26.2 mmol/L (21.0-32.0); Chloride 102 mmol/L (98-108); Globulin 3.0 g/dL (2.2-4.2); Glucose 86 mg/dL (70-99); Potassium 4.0 mmol/L (3.3-5.1)
[2024-11-14 13:56] LABS: Cholesterol 196 mg/dL (<=200); Low Density Lipoprotein Calc. 96 mg/dL; Triglycerides 199 mg/dL; Very Low Density Lipoprotein 40 mg/dL (5-40); cholesterol:hdl ratio screen 3.25
== END | disposition home or self-care (01) ==
LOC: LAB 10:11
PROVIDERS: PCP Internal Medicine; Referring Provider Internal Medicine Cardiovascular Disease; Visit Provider Internal Medicine Cardiovascular Disease
DX: I10 Essential (primary) hypertension (principal); I49.3 Ventricular premature depolarization; I34.0 Nonrheumatic mitral (valve) insufficiency; I35.1 Nonrheumatic aortic (valve) insufficiency; E03.9 Hypothyroidism, unspecified; E78.49 Other hyperlipidemia; R00.2 Palpitations; R07.89 Other chest pain
CPT/HCPCS: 36415; 80053; 80061